=== PATIENT | male | born 1955 | race Caucasian/White ===

== ENCOUNTER 2017-11-01 10:52 | Observation (INO) | payer MEDICARE, MEDICAID ==
[2017-11-01 10:53] VITALS: BMI 24.3
[2017-11-01] MEDS ORDERED: Morphine 4 MG/ML VIAL IV ONE (11:42)
[2017-11-01 11:58] LABS: BASO # 0.1 K/uL (0.0-0.2); BASO % 0.9 % (0.0-2.0); EOS # 0.1 K/uL (0.0-0.7); EOS % 0.6 % (0.0-4.0); HEMOGLOBIN 12.1 g/dL (12.0-18.0); LYMPH # 1.8 K/uL (1.0-4.3); LYMPH % 16.7 % (20.0-40.0); MEAN CORPUSCULAR HGB CONC 32.4 g/dL (33.0-37.0); MEAN PLATELET VOLUME 10.9 fL (7.2-11.7); MONO # 0.6 K/uL (0.0-0.8); MONO % 5.2 % (0.0-10.0); NEUT # 8.3 K/uL (1.8-7.0); NEUT % 76.6 % (50.0-75.0); RBC 5.03 Mil/uL (4.40-5.90); RED CELL DISTRIBUTION WIDTH 21.3 % (11.5-14.5); WHITE BLOOD COUNT 10.8 K/uL (4.8-10.8)
[2017-11-01] MEDS ORDERED: Morphine 4 MG/ML VIAL ONE (12:07)
[2017-11-01 12:08] LABS: INR 1.1; PROTHROMBIN TIME 12.1 SECONDS (9.7-12.2)
[2017-11-01 12:11] LABS: ALB/GLOB RATIO 1.6 (1.0-2.1); ALBUMIN 4.4 g/dL (3.5-5.0); ALT/SGPT 66 U/L (21-72); AST/SGOT 70 U/L (17-59); BLOOD UREA NITROGEN 16 mg/dL (9-20); CALCIUM 9.5 mg/dl (8.6-10.4); GFR AFRICAN-AMERICAN > 60; GFR NON-AFRICAN AMERICAN > 60; LIPASE 48 U/L (23-300)
[2017-11-01] MEDS ORDERED: oxyCODONE 20 mg ER Tab (oxyCONTIN) PO STA (12:15)
[2017-11-01 12:22] LABS: B-TYPE NATRIURETIC PEPTIDE 171 pg/mL (0-900); CK-MB 24.7 ng/mL (0.0-3.38)
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
[2017-11-01] MEDS ORDERED: oxyCODONE 20 mg ER Tab (oxyCONTIN) PO ONE (12:43)
[2017-11-01 14:09] LABS: SQUAMOUS EPITHIAL < 1 /hpf (0-5); URINE BILIRUBIN NEGATIVE (NEGATIVE); URINE BLOOD NEGATIVE (NEGATIVE); URINE CLARITY Clear (Clear); URINE COLOR Straw (YELLOW); URINE GLUCOSE (UA) NORMAL (Normal); URINE LEUKOCYTE ESTERASE NEG Leu/uL (Negative); URINE PROTEIN NEGATIVE (NEGATIVE); URINE UROBILINOGEN NORMAL mg/dL (0.2-1.0)
[2017-11-01 14:18] LABS: BARBITURATES, UR NEGATIVE (NEGATIVE); BENZODIAZEPINES, UR NEGATIVE (NEGATIVE); OPIATES, UR NEGATIVE (NEGATIVE); PHENCYCLIDINE, UR NEGATIVE (NEGATIVE)
[2017-11-01 16:17] VITALS: RESP 20
[2017-11-01] MEDS ORDERED: Carboxymethylcellulose 1% Ophth Soln OU PRN (16:49)
--- NOTE | 2017-11-01 17:16 | RAD ---
Date of service: 11/01/2017 PROCEDURE: CHEST RADIOGRAPH, 1 VIEW HISTORY: SOB COMPARISON: Comparison is made with 11/18/2014 FINDINGS: LUNGS: New linear opacity seen at the lung bases may represent atelectasis. PLEURA: No pneumothorax or pleural fluid seen. CARDIOVASCULAR: Normal. OSSEOUS STRUCTURES: No significant abnormalities. VISUALIZED UPPER ABDOMEN: Normal. OTHER FINDINGS: None. IMPRESSION: Small opacities and low lung bases may represent atelectasis.
[2017-11-01] MEDS: oxyCODONE 10 mg Immediate Release Tab PO PRN ×2 (18:00→23:10)
[2017-11-01] MEDS: oxyCODONE 5 mg Immediate Release Tab PO PRN ×2 (18:03→23:10)
[2017-11-01] MEDS: Albuterol HFA 90 mcg/actuation (8 g) IH PRN (19:03)
[2017-11-01] MEDS ORDERED: (Novolin 70/30) NPH/Regular 70/30 Units/ml 10 ml vial SC SCH (22:00)
[2017-11-02 03:17] LABS: CK-MB 17.4 ng/mL (0.0-3.38)
[2017-11-02 07:52] VITALS: BP 130/69; PULSE 69; TEMP 98.1; O2SAT 94
[2017-11-02] MEDS: Albuterol HFA 90 mcg/actuation (8 g) IH PRN (08:36)
--- NOTE | 2017-11-02 09:06 | CP.PCM.PN ---
Subjective - Date & Time of Evaluation Date of Evaluation: 11/02/17 Time of Evaluation: 09:06 - Subjective Subjective: PGY2 Medicine Note for Dr. Jose Raul Forbes Patient seen and examined this morning at bed side. Patient was admitted overnight for Chest Pain and SOB. Patient is very agitated this morning stating he feels like he is in fdc. He is stating that he wants to leave because no one is listening to him. He says he is fine but he has chronic pain and needs medications. When informed I would not be adjusting his pain regiment until Dr. Forbes arrives, he became very aggressive and stated he would like to go home. He is speaking in full sentences but is becoming short of breath while speaking. He denies fevers, chills, nausea, vomiting, diarrhea, constipation, chest pain, short of breath (even though he is visibly SOB), numbness or tingling. He does not want to wait and would like to leave. Objective - Vital Signs/Intake and Output Vital Signs (last 24 hours): Temp Pulse Resp BP Pulse Ox 98.1 F 69 20 130/69 94 L 11/02/17 07:51 11/02/17 07:51 11/02/17 07:51 11/02/17 07:51 11/02/17 08:28 - Medications Medications: Current Medications Albuterol (Ventolin Hfa 90 Mcg/Actuation (8 G)) 1 puff IH Q6 PRN PRN Reason: Wheezing Last Admin: 11/02/17 08:36 Dose: 1 puff Alprazolam (Xanax) 1 mg PO TID HORACE Last Admin: 11/01/17 18:00 Dose: 1 mg Amlodipine Besylate (Norvasc) 10 mg PO DAILY [facility] Artificial Tears (Artificial Tears Refresh Celluvisc) 0 ml OU Q8H PRN PRN Reason: Dry eyes Aspirin (Aspirin) 325 mg PO DAILY HORACE Clopidogrel Bisulfate (Plavix) 75 mg PO DAILY H[facility]ACE Darunavir (Prezista) 600 mg PO BIDCC HORACE PRN Reason: Protocol Last Admin: 11/01/17 18:24 Dose: 600 mg Dolutegravir Sodium (Tivicay) 50 mg PO BID HORACE PRN Reason: Protocol Last Admin: 11/01/17 18:24 Dose: 50 mg Enoxaparin Sodium (Lovenox) 40 mg SC DAILY [facility] Famotidine (Pepcid) 20 mg PO BID [facility] Last Admin: 11/01/17 18:30 Dose: 20 mg Insulin Human Isoph/Insulin Regular (Novolin 70/30 (70/30 Units/Ml) 10 Ml) 30 units SC HS [facility] Last Admin: 11/01/17 22:00 Dose: 30 units Insulin Human Isoph/Insulin Regular (Novolin 70/30 (70/30 Units/Ml) 10 Ml) 60 units SC DAILY [facility] Metoprolol Tartrate (Lopressor) 50 mg PO DAILY [facility] Oxycodone HCl (Oxycodone Immediate Release Tab) 10 mg PO Q6 PRN PRN Reason: Back pain Last Admin: 11/01/17 23:10 Dose: 10 mg Oxycodone HCl (Oxycodone Immediate Release Tab) 5 mg PO Q6 PRN PRN Reason: Back pain Last Admin: 11/01/17 23:10 Dose: 5 mg Ritonavir (Norvir) 100 mg PO BIDCC [facility] PRN Reason: Protocol Last Admin: 11/01/17 18:24 Dose: 100 mg - Labs Labs: 11/01/17 11:50 11/01/17 11:50 PT 12.1 SECONDS (9.7-12.2) 11/01/17 11:50 INR 1.1 11/01/17 11:50 APTT 27 SECONDS (21-34) 11/01/17 11:50 - Constitutional Appears: Non-toxic, No Acute Distress - Head Exam Head Exam: ATRAUMATIC - Eye Exam Eye Exam: EOMI, Normal appearance - ENT Exam ENT Exam: Mucous Membranes Moist - Respiratory Exam Respiratory Exam: Rales (bases b/l). absent: Accessory Muscle Use, Rhonchi, Wheezes, Respiratory Distress, NORMAL BREATHING PATTERN (short of breath while speaking) - Cardiovascular Exam Cardiovascular Exam: REGULAR RHYTHM, +S1, +S2 - GI/Abdominal Exam GI & Abdominal Exam: Soft, Normal Bowel Sounds. absent: Distended, Firm, Guarding, Rigid, Tenderness - Extremities Exam Extremities Exam: absent: Calf Tenderness, Pedal Edema - Neurological Exam Neurological Exam: Alert, Awake, Oriented x3 - Psychiatric Exam Psychiatric exam: Agitated - Skin Skin Exam: Dry, Warm Assessment and Plan - Assessment and Plan (Free Text) Plan: Chest Pain/SOB Cardio consulted, Dr. Contreras EKG: Sinus @73, no acute changes CXR: Small opacities and low lung bases may represent atelectasis ECHO: LVEF 65-70%, MR trace D-Dimer: 213 Cultures pending Anxiety and hx of Drug use Psych consult, Dr. Serna Was present in the room and offered patient Methadone. Patient refused and wanted to sign out AMA Patient was agitated and wanted to sign out AMA. Patient was informed of multiple risks including but not limited to respiratory failure, cardiac failure , [place], stroke and/or . Patient still wanted to sign and left AMA Sang Cavazos PGY2
[2017-11-02] MEDS ORDERED: (Novolin 70/30) NPH/Regular 70/30 Units/ml 10 ml vial SC SCH (10:00)
[2017-11-02] MEDS ORDERED: Enoxaparin 40 mg Syringe SC SCH (10:00)
--- NOTE | 2017-11-02 15:46 | PCM.PSYCH ---
Initial Psychiatric Evaluation - Initial Psychiatric Evaluation Type of Admission: Voluntary Legal Status: Capacity Chief Complaint (in patient's own words): "I'm withdrawing" History of Present Illness and Precipitating Events: The pt is seen, chart reviewed, case discussed. Consult was requested for psych sxs He is a 62 y/o [place] male, unemployed, single, domiciled Very poor historian, evasive and guarded, irate. He is here for chest pain but he is refusing work up He is demanding for Xanax and he claims his UDS is negative He claims he has a long history but he now takes Oxy for pain, no heroin. He was in methadone clinic in the past He denies other drug use Feels depressed but denies suicide plan/intention No psychosis/santana observed He was NOT in withdrawal Unknown family psych hx Past psych: used "many" medications, doesn't want to try again. medical hx as per chart Past Psychiatric History - Past Psychiatric History Previous Treatment History: Intensive Outpatient Pertinent Medical Hx (Current Medical&Sleep Prob, Allergies): Allergies Allergy/AdvReac Type Severity Reaction Status Date / Time No Known Allergies Allergy Verified 11/18/14 10:22 Amlodipine Besylate [Norvasc] 10 mg PO DAILY 09/22/14 ALPRAZolam [Xanax] 1 mg PO TID 11/01/17 Albuterol HFA [Ventolin HFA 90 mcg/actuation (8 g)] 1 puff IH Q6 PRN 11/01/17 Darunavir Ethanolate [Prezista] 600 mg PO BID 11/01/17 Dolutegravir Sodium [Tivicay] 50 mg PO BID 11/01/17 Fluticasone/Salmeterol [Fluticasone-Salmeterol 113-14] 1 each IH DAILY 11/01/17 Insulin Human (NPH)/Regular [Novolin 70/30 (70/30 units/ml) 10 ml] 30 units SC HS 11/01/17 Insulin Human (NPH)/Regular [Novolin 70/30 (70/30 units/ml) 10 ml] 60 units SC DAILY 11/01/17 Metoprolol Tartrate [Lopressor] 50 mg PO DAILY 11/01/17 Oxycodone HCl [Oxycodone HCl ER] 15 mg PO BID 11/01/17 Polyethylene Glycol/Polyvinyl [Artificial Tears] 1 appl OP PRN PRN 11/01/17 Sulindac 200 mg PO BID 11/01/17 Tizanidine HCl 4 mg PO BID 11/01/17 Review of Systems - Psychiatric Psychiatric: Abnormal Sleep Pattern, Irritability Mental Status Examination - Personal Presentation Personal Presentation: Looks older than stated age - Affect Affect: Constricted - Motor Activity Motor Activity: Psychomotor Agitation - Reliability in Providing Information Reliability in Providing Information: Fair - Speech Speech: Organized - Mood Mood: Depressed, Anxious - Formal Thought Process Formal Thought Process: No Impairment - Cognitive Functions Orientation: Person, Place, Situation, Time Sensorium: Alert Attention/Concentration: Easily distracted Abstract Thinking: [place] Judgement: Intact, as evidence by: Insight regarding need for hospitalization - Risk Risk: Diminished functioning - Strength & Assets Inventory Strength & Assets Inventory: Life experience DSM 5 DX - DSM 5 DSM 5 Diagnosis: Depressive d/o - unspecified Personality d/o - unspecified - Recommended/Plan of Treatment Treatment Recommendations and Plan of Treatment: Cleared for d/c Return to ER if needed Support given 30 min
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
--- NOTE | 2017-11-02 20:26 | CARD ---
APPROVED REPORT Date of service: 11/02/2017 EXAM: Two-dimensional and M-mode echocardiogram with Doppler and color Doppler. INDICATION Dyspnea Chest Pain AIDS, HIV 2D DIMENSIONS IVSd1.2 (0.7-1.1cm)LVDd4.7 (3.9-5.9cm) PWd1.1 (0.7-1.1cm)LVDs3.1 (2.5-4.0cm) FS (%) 34.7 %LVEF (%)63.8 (>50%) M-Mode DIMENSIONS Left Atrium (MM)4.10 (2.5-4.0cm)IVSd0.93 (0.7-1.1cm) Aortic Root3.46 (2.2-3.7cm)LVDd6.33 (4.0-5.6cm) Aortic Cusp Exc.2.44 (1.5-2.0cm)PWd0.75 (0.7-1.1cm) FS (%) 35 %LVDs4.12 (2.0-3.8cm) LVEF (%)63 (>50%) Mitral Valve MV E Jrowyrof96.0cm/sMV A Iqonqvhv66.4cm/sE/A ratio1.0 TDI E/Lateral E'0.0E/Medial E'0.0 Tricuspid Valve TR Peak [id number]/sTR Peak [id number] LEFT VENTRICLE The left ventricle is normal size. There is normal left ventricular wall thickness. Left ventricle systolic function is normal. The Ejection Fraction is 65-70%. There is normal LV segmental wall motion. Transmitral Doppler flow pattern is Grade I-abnormal relaxation pattern. There is no ventricular septal defect visualized. RIGHT VENTRICLE The right ventricle is normal size. The right ventricular systolic function is normal. ATRIA The left atrium is mildly dilated. The right atrium size is normal. AORTIC VALVE The aortic valve is mildly sclerotic. The aortic valve is tri-cuspid. No aortic regurgitation is present. There is no aortic valvular stenosis. MITRAL VALVE The mitral valve is normal in structure. There is no evidence of mitral valve prolapse. Mitral regurgitation is trace. TRICUSPID VALVE The tricuspid valve is normal in structure. There is trace tricuspid regurgitation. Right ventricular systolic pressure is estimated at less than 30 mmHg. There is no pulmonary hypertension. PULMONIC VALVE The pulmonary valve is normal in structure. There is no pulmonic valvular regurgitation. GREAT VESSELS The aortic root is normal in size. The ascending aorta is normal in size. The IVC is dilated. PERICARDIAL EFFUSION There is no pericardial effusion. <Conclusion> Left ventricle systolic function is normal. The Ejection Fraction is 65-70%. Transmitral Doppler flow pattern is Grade I-abnormal relaxation pattern. Mitral regurgitation is trace.
--- NOTE | 2017-11-02 23:10 | CARD ---
APPROVED REPORT Date of service: 11/01/2017 EKG Measurement Heart [id number] <Conclusion> Normal sinus rhythm Normal ECG
--- NOTE | 2017-11-03 12:51 | VASCLAB ---
Date of service: 11/02/2017 PROCEDURE: Lower Extremity Venous Duplex Exam. HISTORY: Leg Swelling, r/o DVT PRIORS: None. TECHNIQUE: Bilateral common femoral, femoral, popliteal and posterior tibial, peroneal and great saphenous veins were evaluated. Flow was assessed with color Doppler, compressibility, assessment of phasic flow and augmentation response. Report prepared by Servando Denson, BS, RVT FINDINGS: RIGHT: 1. Common Femoral Vein: 1.1. Compressibility - Fully compressible: Thrombus - None : Flow - Phasic: Augmentation -Normal: Reflux - None. 2. Femoral Vein: 2.1. Compressibility - Fully compressible: Thrombus - None : Flow - Phasic: Augmentation -Normal: Reflux - None. 3. Popliteal Vein: 3.1. Compressibility - Fully compressible: Thrombus - None : Flow - Phasic: Augmentation -Normal: Reflux - None. 4. Posterior Tibial Vein: 4.1. Compressibility - Fully compressible: Thrombus - None: Flow - Phasic: Augmentation -Normal: Reflux - None. 5. Peroneal Vein: 5.1. Compressibility - Fully compressible: Thrombus - None: Flow - Phasic: Augmentation -Normal: Reflux - None. 6. Great Saphenous Vein: 6.1. Compressibility - Fully compressible: Thrombus - None: Flow - Phasic: Augmentation - Normal: Reflux - Severe >4.99s LEFT: 1. Common Femoral Vein: 1.1. Compressibility - Fully compressible: Thrombus - None: Flow - Phasic: Augmentation -Normal: Reflux - None. 2. Femoral Vein: 2.1. Compressibility - Fully compressible: Thrombus - None: Flow - Phasic: Augmentation -Normal: Reflux - None. 3. Popliteal Vein: 3.1. Compressibility - Fully compressible: Thrombus - None : Flow - Phasic: Augmentation -Normal: Reflux - None. 4. Posterior Tibial Vein: 4.1. Compressibility - Fully compressible: Thrombus - None: Flow - Phasic: Augmentation -Normal: Reflux - None. 5. Peroneal Vein: 5.1. Compressibility - Fully compressible: Thrombus - None: Flow - Phasic: Augmentation -Normal: Reflux - None. 6. Great Saphenous Vein: 6.1. Compressibility - Fully compressible: Thrombus - None: Flow - Phasic: Augmentation - Normal: Reflux - Severe >4.99s OTHER FINDINGS: Right: None significant. Left: None significant. IMPRESSION: Right: No evidence of deep or superficial vein thrombosis of the right lower extremity. Left: No evidence of deep or superficial vein thrombosis of the left lower extremity. Severe valvular incompetence noted of bilateral great saphenous veins.
== END 2017-11-02 12:18 | disposition left against medical advice (07) ==
LOC: C.ER 10:52 → C.9E 13:07 → C.5S 14:26
PROVIDERS: ADMIT Internal Medicine Nephrology; ATTEND Internal Medicine Nephrology
DX: F32.9 Major depressive disorder, single episode, unspecified (principal); E11.9 Type 2 diabetes mellitus without complications; F17.200 Nicotine dependence, unspecified, uncomplicated; G89.29 Other chronic pain; I10 Essential (primary) hypertension; F41.9 Anxiety disorder, unspecified; J44.9 Chronic obstructive pulmonary disease, unspecified; Z86.73 Personal history of transient ischemic attack (TIA), and cerebral infarction without residual deficits; F14.10 Cocaine abuse, uncomplicated; M54.9 Dorsalgia, unspecified; R07.9 Chest pain, unspecified
CPT/HCPCS: 36415; 71045; 80053; 81001; 82550; 82553; 82948; 83615; 83690; 83880; 84484; 85025; 85378; 85610; 85730; 87040; 87086; 93005; 93306; 93970; 94640; 99285; G0378; G0480; J1650